=== PATIENT | female | born 1985 | race Caucasian/White ===

== ENCOUNTER → 2016-05-04 | Outpatient (CLI) | payer BC | LOC: MOB LAB 17:15 | PROVIDERS: ATTEND Nurse Practitioner Family | DX: N89.8 Other specified noninflammatory disorders of vagina (principal) | CPT/HCPCS: 87480; 87491; 87510; 87591; 87660 ==

== ENCOUNTER 2018-02-19 10:06 | Observation (INO) ==
[2018-02-19] MEDS ORDERED: Sodium Chloride 0.9% 1,000 ML PRIMARY IV ONE ×2 (10:15→10:21)
[2018-02-19] MEDS ORDERED: ONDANSETRON 4 MG/2 ML VIAL IVP ONE (10:15)
[2018-02-19] MEDS ORDERED: MORPHINE SULFATE 4 MG/1 ML IVP ONE (10:15)
[2018-02-19] MEDS ORDERED: PANTOPRAZOLE IV 40 MG VIAL IVP ONE (10:15)
[2018-02-19] MEDS ORDERED: ONDANSETRON 4 MG/2 ML VIAL ONE (10:21)
[2018-02-19] MEDS ORDERED: MORPHINE SULFATE 2 MG/1 ML ONE (10:22)
[2018-02-19 10:29] LABS: Hematocrit [HCT] 43.3 % (37.0-47.0); Hemoglobin [HGB] 15.1 g/dL (12.0-16.0); MEAN CORPUSCULAR HEMOGLOBIN 29.9 PG (27-31); MEAN CORPUSCULAR HGB CONC 34.9 g/dL (33-37); MEAN CORPUSCULAR VOLUME 85.7 FL (81-99); RED BLOOD COUNT 5.05 10^6/uL (4.20-5.40)
--- NOTE | 2018-02-19 10:29 | PDOC ---
Abdomen/Flank HPI - General Chief Complaint: Abdomen Pain Stated Complaint: abd pain since 0600 Date Seen by Provider: 02/19/18 Time Seen by Provider: 10:20 Source: POSITIVE: Patient Exam Limitations: POSITIVE: No limitations Nurse's Notes Reviewed & Considered: Yes - History of Present Illness Initial Comments: The patient is a 32-year-old female who presents to the emergency department with complaints of epigastric abdominal pain. She states that she had onset of pain at approximately 6 AM this morning. She is currently rating her pain an 8 out of 10. She has not had any associated nausea or vomiting. She denies any recent change in bowel movements or blood in her stool. She does not have any known history of ulcers or liver problems. She states that she did drink a fair amount last night. She has not had any previous abdominal surgeries. - Patient Home Medications Home Medications: Home Medications Levonorgestrel [Mirena] 1 ea IY ONCE #1 unit 07/23/15 Multivitamin with Iron [Daily Vitamin + Iron] 1 ea PO DAILY tab 05/04/16 - Patient Allergies Allergies/Adverse Reactions: Allergies 3 Allergy/AdvReac Type Severity Reaction Status Date / Time No Known Allergies Allergy Verified 01/13/18 09:47 Past Medical History - heen HEENT History: Denies History Cardiovascular History: Denies History Respiratory History: Denies History Gastrointestinal History: Denies History Genitourinary History: Denies History Endocrine History: Denies History Musculoskeletal History: Denies History Prosthesis or Implant: No Neurological History: Denies History Blood Disorders: Denies History Psychiatric History: Denies History History of Sexually Transmitted Diseases: No Cancer History: Denies History History of MDRO: No History of Other Communicable Diseases: No Alcohol Use: None In the Past 12 Months, Have Used or Abuse Any Substance: None Previous Surgical History: No Anesthesia Reactions: No Malignant Hyperthermia: No Significant Family History: No pertinent family hx Past Medical History Reviewed: Reviewed - No Changes ROS - Limitations ROS Limitations: No Limitations Constitution: DENIES: Fever Cardiovascular: REPORTS: Denies Cardiac Symptoms Respiratory: REPORTS: Denies Resp Symptoms Neurological: REPORTS: Denies Neuro Symptoms Gastrointestinal: REPORTS: Abdominal Pain, Nausea. DENIES: Vomitting, Diarrhea , Black Stools, Bloody Stools Endocrine: REPORTS: Denies Symptoms Musculoskeletal: REPORTS: Denies MS Symptoms Genitourinary: REPORTS: Denies Symptoms Eyes: REPORTS: Denies Symptoms ENT: REPORTS: Denies Symptoms Skin: DENIES: Rash Abdominal/Flank Pain PE - General Appearance General Appearance: POSITIVE: Alert, Cooperative, No Acute Distress - HEENT HEENT: POSITIVE: Head Inspection Nml, Eyes Inspection Nml, Ears Inspection Nml, Pharynx Inspect. Nml - Neck Neck: POSITIVE: Normal Inspection - Respiratory Respiratory: POSITIVE: No Respiratory Distress, Breath Sounds Normal - Cardiovascular Cardiovascular: POSITIVE: Regular Rate and Rhythm, Heart Sounds Normal - Abdomen Abdomen: Soft: (All Quadrants), Normal Bowel Sounds: (All Quadrants), No Guarding: (All Quadrants), No Rebound: (All Quadrants), No Distention: (All Quadrants) Additional Abdominal Details: She does have tenderness primarily in the epigastric region although she does have some generalized abdominal tenderness as well - Back Back: NEGATIVE: CVA Tenderness (R), CVA Tenderness (L) - Skin Skin: POSITIVE: Intact, No Rash - Extremities Extremity: Normal ROM: (All Extremities), Normal Inspection: (All Extremities) Abdomen Progress - Results Reviewed by me Xrays/CTs/US Reviewed by me: Yes Discussed with Radiologist: Yes Radiology Findings: CT scan of the abdomen and pelvis with IV contrast shows some mildly dilated loops of small bowel which are fluid filled thought to be secondary to ileus or enteritis per radiologist. The remainder of her exam was unremarkable. Lab Results Reviewed by Me: Yes CBC and BMP: 02/19/18 10:15 02/19/18 10:15 - Patient's Progress MDM / ED Course: An IV was established and the patient received 4 mg of morphine and 4 mg of Zofran IV for pain and nausea. She also received 1 L bolus of normal saline and Protonix 40 mg IV. The patient did not really have any significant pain relief after the morphine. She also was quite anxious. She received Ativan [address] she was still having continued significant pain and received Dilaudid 1 mg IV as well as Compazine 2.5 mg IV for continued dry heaves. Her blood work reveals an elevated white blood cell count of 15,000. Her liver enzymes and pancreas enzymes are normal. CT scan of the abdomen and pelvis shows some nonspecific dilated loops of small bowel with no other acute findings per radiologist. Even after administration of all of the above medications patient is still having significant pain. Because of this consultation was obtained from Dr. Rossi. He recommended further evaluation with gallbladder ultrasound as well. The ultrasound of the gallbladder was normal. Dr. Rossi evaluated the patient in the emergency department and has made arrangements to admit the patient for further evaluation and care. Patient Care Time - Estimated PCT Patient Care Time (In Minutes): 45 Vital Signs - VS Reviewed Vital Signs Reviewed: Yes Discharge Clinical Impression: Abdominal pain Discharge Disposition: Admit to Observation Condition: Fair Follow Up With: Christelle Karimi [Primary Care Provider] -
[2018-02-19 10:34] LABS: BLOOD UREA NITROGEN 15 mg/dL (7-22); BUN/CREATININE RATIO 16.66 (6-20); LIPASE 75 IU/L (23-300); SERUM ALBUMIN 5.3 g/dL (3.5-4.8)
[2018-02-19] MEDS ORDERED: MORPHINE SULFATE 2 MG/1 ML IVP ONE (10:34)
[2018-02-19] MEDS ORDERED: LORazepam 2 MG/1 ML VIAL IVP ONE (10:39)
[2018-02-19 10:42] LABS: BAND NEUTROPHILS % 0 % (0-10); BASOPHILS % (MANUAL) 0 % (0-1); EOSINOPHILS % (MANUAL) 0 % (0-8); METAMYELOCYTES % 0 %; MONOCYTES % (MANUAL) 5 % (0-12); MYELOCYTES % 0 %; NEUTROPHILS % (MANUAL) 60 % (50-80); PLATELET MORPHOLOGY COMMENT NORMAL MORPHOLOGY (NORM); PROMYELOCYTES % 0 %; RBC MORPHOLOGY COMMENT NORMAL MORPHOLOGY (NORM); WBC MORPHOLOGY COMMENT NORMAL MORPHOLOGY (NORM)
[2018-02-19] MEDS ORDERED: HYDROmorphone 2 MG/1 ML IVP ONE (11:01)
[2018-02-19] MEDS ORDERED: Prochlorperazine Edisylate Inj 10mg/2ml vial IVP ONE ×2 (11:23→14:19)
--- NOTE | 2018-02-19 11:39 | DI ---
EXAM: CT Abdomen and Pelvis With Intravenous Contrast CLINICAL HISTORY: Abdominal pain TECHNIQUE: Axial computed tomography images of the abdomen and pelvis with intravenous contrast. COMPARISON: No relevant prior studies available. FINDINGS: Lung bases: Unremarkable. No mass. No consolidation. ABDOMEN: Liver: Unremarkable. No mass. Gallbladder and bile ducts: Unremarkable. No calcified stones. No ductal dilation. Pancreas: Unremarkable. No mass. No ductal dilation. Spleen: Unremarkable. No splenomegaly. Adrenals: Unremarkable. No mass. Kidneys and ureters: Unremarkable. No solid mass. No hydronephrosis. Stomach and bowel: Mild fluid distention of small bowel loops with luminal air fluid levels, which may suggest mild ileus or enteritis. No focal bowel wall thickening. No bowel obstruction. Mild diffuse colonic fecal retention may suggest constipation. Remainder of the colon appears unremarkable. PELVIS: Appendix: The appendix appears normal. Bladder: Unremarkable. No mass. Reproductive: The uterus and ovaries appear unremarkable. ABDOMEN and PELVIS: Intraperitoneal space: Unremarkable. No free air. No significant fluid collection. Bones/joints: Bilateral L5 spondylolysis without evidence of spondylolisthesis. No acute fracture. No dislocation. Soft tissues: Unremarkable. Vasculature: Unremarkable. No abdominal aortic aneurysm. Lymph nodes: Unremarkable. No enlarged lymph nodes. IMPRESSION: 1. Mild fluid distention of small bowel loops with luminal air fluid levels, suggesting mild ileus or enteritis. No focal bowel wall thickening. No bowel obstruction. 2. Mild constipation. 3. Bilateral L5 spondylolysis without evidence of spondylolisthesis.
[2018-02-19] MEDS ORDERED: KETOROLAC 30 MG/1 ML VIAL IVP ONE (13:43)
--- NOTE | 2018-02-19 13:44 | DI ---
EXAM: US Abdomen Complete CLINICAL HISTORY: Upper abdominal pain, TECHNIQUE: Real-time ultrasound of the abdomen (complete) with image documentation. COMPARISON: No relevant prior studies available. FINDINGS: Liver: Unremarkable. No parenchymal lesions. No intrahepatic bile duct dilation. Gallbladder: Unremarkable. No gallstones. No wall thickening. No pericholecystic fluid. Common bile duct: Common bile duct diameter 2 mm. No stones. No dilation. Pancreas: Unremarkable as visualized. Pancreatic body and tail are obscured by bowel gas. Kidneys: Right kidney length of 9.3 cm. Normal cortical thickness. No visible parenchymal lesions. No visible stones. No hydronephrosis. Spleen: Unremarkable. No splenomegaly. Aorta: Visualized portions of the aorta appear unremarkable. Inferior vena cava: Visualized portions of the IVC appear unremarkable. IMPRESSION: No acute findings.
[2018-02-19 14:02] LABS: BILIRUBIN,URINE NEGATIVE (NEG); CLARITY,URINE CLEAR (CLEAR); COLOR,URINE YELLOW (Y); GLUCOSE, URINE (UA) NEGATIVE (NEG); OCCULT BLOOD,URINE NEGATIVE (NEG); PROTEIN,URINE NEGATIVE (NEG); UROBILINOGEN,URINE 0.2 EU/dL (0.2)
[2018-02-19 14:04] LABS: URINE SAMPLE TYPE CLEAN CATCH URINE
[2018-02-19] MEDS ORDERED: KETOROLAC 15 MG/1 ML VIAL IVP PRN (14:59)
[2018-02-19] MEDS: fentaNYL Inj 100 MCG/2 ML VIAL IVP PRN ×4 (15:12→21:25)
[2018-02-19] MEDS: Prochlorperazine Edisylate Inj 10mg/2ml vial IVP PRN ×2 (18:09→21:25)
[2018-02-20] MEDS: fentaNYL Inj 100 MCG/2 ML VIAL IVP PRN (00:23)
[2018-02-20 04:44] VITALS: TEMP 97.2
[2018-02-20 04:50] LABS: Hematocrit [HCT] 38.6 % (37.0-47.0); Hemoglobin [HGB] 12.9 g/dL (12.0-16.0); MEAN CORPUSCULAR HEMOGLOBIN 28.9 PG (27-31); MEAN CORPUSCULAR HGB CONC 33.4 g/dL (33-37); MEAN CORPUSCULAR VOLUME 86.5 FL (81-99); RED BLOOD COUNT 4.46 10^6/uL (4.20-5.40)
[2018-02-20 05:02] LABS: BLOOD UREA NITROGEN 12 mg/dL (7-22); BUN/CREATININE RATIO 17.14 (6-20); SERUM ALBUMIN 3.9 g/dL (3.5-4.8)
--- NOTE | 2018-02-20 06:18 | PDOC(PROG) ---
Date of Service: 02/20/18 Time of Service: 06:15 Interval History: She feels much better. No nausea or significant pain. Hungry. Objective : Data - Labs CBC and BMP: 02/20/18 04:40 02/20/18 04:40 - Vital Signs Vital Signs and I&O: Vital Signs - Last Taken Temperature 97.2 F 02/20/18 04:43 Pulse Rate 54 L 02/20/18 04:43 Respiratory Rate 18 02/20/18 04:43 Blood Pressure 103/59 02/20/18 04:43 Pulse Ox 95 02/20/18 04:43 Intake and Output (24hr x 4 totals) 02/18/18 02/19/18 02/20/18 02/21/18 05:59 05:59 05:59 05:59 Intake Total 1480 / 1480 Output Total 775 / 775 Balance 705 / 705 Objective : Exam - GI/Abdominal Additional GI/Abdominal Exam Details: abdomen soft and minimally tender in the RLQ. No guarding. Minimal distension. Assessment and Plan - Assessment / Plan Additional Assessment/Plan Details: lucille Reed Plan: Pelvic USG. Discharge. Regular diet. F/U with primary physician. - Time/Visit Time Spent With Patient: Less Than 15 Minutes
[2018-02-20 07:31] VITALS: BP 122/65; RESP 16; O2SAT 96
--- NOTE | 2018-02-20 08:50 | DI ---
EXAM: US Pelvis, Transvaginal CLINICAL HISTORY: 32-year-old female with right lower quadrant pain; suspect Mittelschmerz; evaluate for right ovarian cyst. TECHNIQUE: Real-time transvaginal pelvic ultrasound (complete) with image documentation; no transabdominal images provided. COMPARISON: Abdomen and pelvis CT with intravenous contrast 02/19/2018; transvaginal pelvic ultrasound 10/03/2015. FINDINGS: Uterus/cervix: Anteverted uterus measures 8.7 x 6.0 x 3.4 cm, for estimated volume of 92.8 cc. Thin and grossly unremarkable endometrial stripe is measured at 7 mm in thickness. Right ovary: Right ovary measures 3.1 x 2.8 x 1.8 cm, for estimated volume of 8.2 cc. Multiple small similar sized right ovarian follicles. Normal blood flow. Left ovary: Left ovary measures 3.2 x 3.1 x 2.6 cm, for estimated volume of 13.5 cc. Multiple small, similar size left ovarian follicles. Normal blood flow. Free fluid: Small amount of simple appearing ascites in the pelvic cul- de-sac and bilateral adnexal regions. IMPRESSION: 1. Nonenlarged bilateral ovaries, containing multiple small similar sized follicles; no significant ovarian cyst or evidence of torsion bilaterally. 2. Small volume simple appearing pelvic ascites.
== END 2018-02-20 09:45 | disposition home or self-care (01) ==
LOC: MED/SURG 10:06 → ER 10:06 → MED/SURG 15:00
PROVIDERS: ADMIT Personal Emergency Response Attendant; ATTEND Surgery